=== PATIENT | male | born 2005 | race African-American/Black ===

== ENCOUNTER 2023-04-11 12:42 | Emergency (ER) | payer OTHER, SELFPAY ==
[2023-04-11 12:57] VITALS: BP 100/77; PULSE 79; RESP 16; TEMP 36.9; O2SAT 100
--- NOTE | 2023-04-11 13:04 | ED.MALEGU ---
HPI - Male Genitourinary General Chief complaint: Urogenital-Male Stated complaint: STD Time Seen by Provider: 04/11/23 13:09 Source: patient and RN notes reviewed Mode of arrival: ambulatory Limitations: no limitations History of Present Illness HPI Narrative: 17-year-old male presents with concern for STD testing. Reports he had chlamydia 2 months ago and was treated but did not wait the full 7 days to have intercourse. He denies any current symptoms, he just wants peace of mind. MD Complaint: possible STD exposure Related Data Allergies Allergy/AdvReac Type Severity Reaction Status Date / Time No Known Allergies Allergy Verified 04/11/23 13:08 Review of Systems Review of Systems: CONSTITUTIONAL: Denies malaise, chills, sweats, or fever. CARDIOVASCULAR: Denies chest pain, palpitations, or edema. RESPIRATORY: Denies cough or dyspnea. GASTROINTESTINAL: Denies abdominal pain, nausea, vomiting, diarrhea GENITOURINARY: Denies penile discharge, lesions, dysuria, frequency, urgency, suprapubic pressure. Denies flank pain or hematuria. SKIN: Denies rash or itching. MUSCULOSKELETAL: Denies back pain or myalgia. All systems reviewed & are unremarkable except as noted in HPI and below PMFSH Comments At time of signature, agree with nursing past medical, surgical, social and family history. There is no relevant family history pertinent to the presenting complaint Exam Narrative: GENERAL: Well-appearing, well-nourished, and in no acute distress. HEAD: Normocephalic. EYES: PERRLA, conjunctivae clear. NECK: Supple. No lymphadenopathy CHEST: Clear to auscultation. No respiratory distress. HEART: Regular rate and rhythm. SKIN: Warm, dry, no rash. NEURO: Alert and oriented x3. PSYCH: Normal mood and affect Course Course Emergency Course: Patient is aware of diagnosis, understands and agrees to treatment plan. Anticipatory guidance given. Patient agrees to follow-up as directed and is aware of reasons to seek care at the emergency department. Portions of this record may have been created with voice recognition software Level of Care: Express Care Visit Vital Signs Vital signs: Vital Signs Temperature 98.4 F 04/11/23 12:57 Pulse Rate 79 04/11/23 12:57 Respiratory Rate 16 04/11/23 12:57 Blood Pressure 100/77 01/07/24 12:57 Pulse Oximetry 100 04/11/23 12:57 Oxygen Delivery Room Air 04/11/23 12:57 Temperature 98.4 F 04/11/23 12:57 Pulse Rate 79 04/11/23 12:57 Respiratory Rate 16 04/11/23 12:57 Blood Pressure 100/77 04/11/23 12:57 Pulse Oximetry 100 04/11/23 12:57 Oxygen Delivery Room Air 04/11/23 12:57 Reviewed. Critical Care Time Critical Care Time Critical Care Time: No Discharge Plan Discharge Clinical Impression: Possible exposure to STD Patient Disposition: Home, Self-Care Condition: Stable Instructions: Safe Sex Practices (ED) Additional Instructions: You have been tested for potential gonorrhea, chlamydia, and trichomoniasis today. You will receive a phone call in 2-3 days with the results of today's testing. You have received a prescription for doxycycline to treat chlamydia. If you are positive for gonorrhea or trich of these you will need treatment with antibiotics, if your positive for gonorrhea you will need to return for a shot it is very important that you avoid unprotected intercourse during treatment and for 7 days AFTER TREATMENT is complete and until your partner(s) have been treated. Please encourage your partner(s) to seek testing and treatment. When you have been exposed to sexually transmitted infections, it is important that you seek comprehensive testing, since we do not provide testing for all sexually transmitted infections. Some infections can have no symptoms, but cause serious health problems. Contact your health care provider or report to the emergency department if: You have genital swelling or pain, or unusual bleed
[2023-04-11 18:08] LABS: Trichomonas Vag PCR NOT DETECTED (NOT DETECTE)
[2023-04-11 18:32] LABS: Chlamydia trachomatis NOT DETECTED (NOT DETECTE); Neisseria gonorrhoeae PCR NOT DETECTED (NOT DETECTE)
== END 2023-04-11 13:21 | disposition home or self-care (01) ==
PROVIDERS: Emergency Provider Nurse Practitioner
DX: Z11.3 Encounter for screening for infections with a predominantly sexual mode of transmission (principal)
CPT/HCPCS: 87491; 87591; 87661; 99213; G0463